=== PATIENT | male | born 1970 | race Caucasian/White ===

== ENCOUNTER 2017-09-09 13:14 | Day surgery (SDC) | payer OTHER ==
[~2017-09-09 13:14] MED LIST: ACETAMINOPHEN 1,000 MG/100 ML BTL IV ONE
[2017-09-09] MEDS ORDERED: LIDOCAINE 2% MDV (20MG/ML) 20ML VIAL IV ONE (13:15)
[2017-09-09] MEDS ORDERED: FENTANYL PF 100MCG/2ML VIAL IV ONE (13:15)
[2017-09-09] MEDS ORDERED: MIDAZOLAM HCL 2MG/2ML VIAL IV ONE (13:15)
[2017-09-09] MEDS ORDERED: PROPOFOL 10 MG/ML VIAL IV ONE (13:15)
[2017-09-09] MEDS ORDERED: ONDANSETRON HCL IV 4 MG/2 ML VIAL IVP ONE (13:15)
[2017-09-09] MEDS ORDERED: KETOROLAC 30 MG/ML VIAL IVP ONE (13:15)
[2017-09-09] MEDS ORDERED: BUPIVACAINE 0.75% W/EPI MPF 30ML VIAL IVP ONE (13:15)
[2017-09-09] MEDS ORDERED: SEVOFLURANE 250 ML INH ONE (13:15)
--- NOTE | 2017-09-10 13:10 | Operative Note ---
DATE OF SURGERY: 09/09/2017 PREOPERATIVE DIAGNOSIS: Torn medial meniscus of the right knee. POSTOPERATIVE DIAGNOSES: 1. Torn medial and lateral meniscus, right knee. 2. Chondromalacia medial femoral condyle, right knee. 3. Medial midpatellar plica, right knee. OPERATIVE PROCEDURES: 1. Arthroscopic partial medial and lateral meniscectomy, right knee. 2. Arthroscopic resection medial midpatellar plica, right knee. 3. Arthroscopic chondroplasty medial femoral condyle, right knee. DESCRIPTION: This 47-year-old male was taken to the operating room and placed in the supine position on the operating room table where general anesthesia was induced. The right lower extremity was elevated, exsanguinated, and tourniquet inflated to 300 mmHg. The right knee was then placed in the arthroscopic knee garcia, and the right knee prepped with Hibiclens and draped in the usual sterile fashion. Inferolateral and inferomedial portals were established, and initial evaluation of the joint demonstrated normal appearance of suprapatellar pouch. Patient did demonstrate very minimal scuffing of the articular cartilage of the patella with minimal grade 2 changes noted on the medial ridge. It was not unstable and it was not further disturbed. The trochlea appeared to be normal. The medial compartment was entered and a large flap tear of the medial meniscus was present with a small stalk attached to the medial meniscus at about the 3 o'clock position. This large flap was then seen to be flipped up into the gutter. Utilizing the basket forceps, we resected the attachment at the stalk and used the rotating shaver to debride the torn portion of the meniscus. Further probing done of the meniscus demonstrated horizontal cleavage tear all the way around to the posterior attachment, not involving the root, but we used the basket forceps to resect meniscus around the posterior horn and body to a smooth stable contoured meniscus. This tear involved most of the posterior horn leaving about 2 mm to 3 mm of meniscus remaining at the periphery. Tear extended up around to about the 4 o'clock position. There was also destruction of the articular cartilage over the medial femoral condyle at about the level of the meniscus rest, but not on the weightbearing surface. This was shaved with a rotating shaver to stabilize the articular cartilage there. The intercondylar notch was seen to be normal. The lateral compartment was entered and a small horizontal cleavage tear of the lateral meniscus was present at about the 9 o'clock position of the body. We resected approximately 3-4 mm to the apex of the tear and then further smoothed and contoured the cut edge to a stable rim. The articular cartilage was normal. The joint was then suctioned. We did demonstrate a fibrotic median mid patella plica, which was also resected. The joint was suctioned. The instruments were removed, portals were infiltrated with 0.75% bupivacaine with epinephrine and sterile dressings applied. Tourniquet and knee garcia released and the patient taken to the recovery room in satisfactory condition. GROSS PATHOLOGY: This patient demonstrated tearing of both the medial and lateral menisci as described above. In addition, there was chondromalacia of the patella and medial femoral condyle, but a medial midpatellar plica also being identified. CC: Parish Hilton. DO [id number]
== END 2017-09-09 16:00 | disposition home or self-care (01) ==
LOC: SUR 13:14
PROVIDERS: ATTEND Orthopaedic Surgery
DX: M23.200 Derangement of unspecified lateral meniscus due to old tear or injury, right knee (principal); M23.203 Derangement of unspecified medial meniscus due to old tear or injury, right knee; M94.261 Chondromalacia, right knee; M67.51 Plica syndrome, right knee
CPT/HCPCS: 93005; 93010; J1885; J2405; J3490